=== PATIENT | male | born 1970 | race Caucasian/White ===

== ENCOUNTER → 2021-10-03 | Outpatient (CLI) | payer BC ==
--- NOTE | 2021-10-03 20:51 | CT ---
EXAMINATION TYPE: CT abdomen pelvis w con DATE OF EXAM: 10/03/2021 COMPARISON: None available HISTORY: umbilical pain/burning , h/o hernia repair CT DLP: 845.7 mGycm Automated exposure control for dose reduction was used. TECHNIQUE: Helical acquisition of images was performed from the lung bases through the pelvis. CONTRAST: Performed with Oral Contrast and with IV Contrast, patient injected with 100 mL of Isovue 300. FINDINGS: LUNG BASES: Scattered bilateral pleural-based pulmonary nodules measuring up to 6 mm. Recommend [facility] elective CT chest assessment. LIVER/GB: No significant abnormality is appreciated. PANCREAS: No significant abnormality is seen. SPLEEN: No significant abnormality is seen. ADRENALS: No significant abnormality is seen. KIDNEYS: No significant abnormality is seen. FREE AIR: No free air is visualized. RETROPERITONEAL ADENOPATHY: No pathologically enlarged lymph nodes. REPRODUCTIVE ORGANS: No significant abnormality is seen URINARY BLADDER: No significant abnormality is seen. PELVIC ADENOPATHY: 16 mm soft tissue nodule is seen in the right inguinal region deep to the anterio r abdominal wall muscle and anteromedial to the external iliac vessels, incompletely characterized by this CT scan and could represent a lymph node or sequela of previous inguinal hernia repair. Left in guinal densities are also noted likely related to previous inguinal hernia repair, please correlate w ith the patient's surgical history/operative report. Otherwise no pathologically enlarged pelvic lymp h nodes. OSSEOUS STRUCTURES: Degenerative changes of the lower thoracic and upper lumbar spine. BOWEL: Mild wall thickening of the greater curvature of the stomach, possibly due to incomplete dist ention. Recommend correlation with gastroscopy results. Unremarkable remainder of the stomach, duoden um and small bowel. No gross colonic abnormality. Subtle fat stranding in the mesentery with prominen t subcentimeter lymph nodes, nonspecific. Element of mesenteritis cannot be excluded. OTHER: Scattered arterial atherosclerotic calcifications. Scarring is seen along the umbilicus, proba felicia related to previous surgery. IMPRESSION: 1. The described changes in the inguinal regions and along the umbilicus could be related to previous hernia repair, please correlate with the patient's surgical history/operative report. Possible right inguinal lymph node versus postsurgical changes. 2. Mild wall thickening of the greater curvature of the stomach, nonspecific. Underlying small lesion cannot be excluded. Further gastroscopy can be considered if clinically required. 3. Bilateral basal pulmonary nodules as described above, for further dedicated CT scan of the chest. Other incidental findings as described above.
== END | disposition home or self-care (01) ==
LOC: RADCTMAIN 14:34
PROVIDERS: ATTEND Surgery Plastic and Reconstructive Surgery
DX: R91.8 Other nonspecific abnormal finding of lung field (principal); K31.89 Other diseases of stomach and duodenum
CPT/HCPCS: 74177; Q9967

== ENCOUNTER 2021-10-24 09:05 | Day surgery (SDC) | payer BC ==
[2021-10-22 14:48] VITALS: BMI 25.7
--- NOTE | 2021-10-24 07:37 | P.GSHP ---
History of Present Illness H&P Date: 10/24/21 CHIEF COMPLAINT: GERD and colon screen HISTORY OF PRESENT ILLNESS: The patient is a 50-year-old male who presents with gastroesophageal reflux disease and need for colon screen. Upper and lower endoscopy were offered for further evaluation and management. PAST MEDICAL HISTORY: Please see list. PAST SURGICAL HISTORY: Please see list. MEDICATIONS: Please see list. ALLERGIES: Please see list. SOCIAL HISTORY: No illicit drug use FAMILY HISTORY: No reports of Crohn disease or ulcerative colitis. REVIEW OF ORGAN SYSTEMS: CONSTITUTIONAL: No reports of fevers or chills. GI: Denies any blood in stools or constipation. PHYSICAL EXAM: VITAL SIGNS: Stable GENERAL: Well-developed pleasant in no acute distress. HEENT: No scleral icterus. Extraocular movements grossly intact. Moist buccal mucosa. NECK: Supple without lymphadenopathy. CHEST: Unlabored respirations. Equal bilateral excursions. CARDIOVASCULAR: Regular rate and rhythm. Distal 2+ pulses. ABDOMEN: Soft, nondistended. MUSCULOSKELETAL: No clubbing, cyanosis, or edema. ASSESSMENT: 1. Gastroesophageal reflux disease 2. Colon screen. PLAN: 1. Recommend proceeding with an upper and lower endoscopy Past Medical History Past Medical History: GERD/Reflux, Hypertension History of Any Multi-Drug Resistant Organisms: None Reported Past Surgical History: Appendectomy, Hernia Repair, Tonsillectomy Additional Past Surgical History / Comment(s): Hernia repair X3, tendon repair right hand. Past Anesthesia/Blood Transfusion Reactions: No Reported Reaction Past Psychological History: Depression Smoking Status: Never smoker Past Alcohol Use History: Rare Past Drug Use History: None Reported - Past Family History Mother Family Medical History: No Reported History Medications and Allergies Home Medications Medication Instructions Recorded Confirmed Type Lisinopril [Zestril] 10 mg PO QAM 10/22/21 10/22/21 History Omeprazole 20 mg PO DAILY 10/22/21 10/22/21 History buPROPion HCL [Wellbutrin SR] 150 mg PO DAILY 10/22/21 10/22/21 History Allergies Allergy/AdvReac Type Severity Reaction Status Date / Time Penicillins Allergy Itching Verified 10/22/21 14:36
[~2021-10-24 09:05] MED LIST: LACTATED RINGERS 1,000 ML IV SCH; LIDOCAINE 1% (10MG/ML) FOR IV START INTRADERMA PRN; MIDAZOLAM 2 MG/2 ML VIAL IV PRN
[2021-10-24 09:39] VITALS: TEMP 98
[2021-10-24] MEDS ORDERED: PROPOFOL 10 MG/ML 20 ML VIAL IV ONE (11:28)
[2021-10-24] MEDS ORDERED: LIDOCAINE 1% INJ 10MG/ML (20 ML MDV) ONE (11:28)
[2021-10-24] MEDS ORDERED: SODIUM CHLORIDE 0.9% 500 ML 500 ML IV ONE (11:51)
--- NOTE | 2021-10-24 12:03 | P.PCN ---
Date of Procedure: 10/24/21 Description of Procedure: PREOPERATIVE DIAGNOSIS: Gastroesophageal reflux disease. Abnormal computed tomography scan for gastric anomaly POSTOPERATIVE DIAGNOSIS: Gastroesophageal reflux disease. Gastric polyps Gastritis. Diaphragmatic hiatal hernia OPERATION: Esophagogastroduodenoscopy with biopsies along antrum. SURGEON: Korina Mart MD ANESTHESIA: MAC. INDICATIONS: The patient is a 50-year-old male who presents with reflux disease. Benefits and risks of the procedure were described. Informed consent was obtained. DESCRIPTION: The patient was brought into the endoscopy suite and laid in the left lateral decubitus position. An Olympus gastroscope was passed along the posterior oropharynx down to the distal esophagus where the squamocolumnar junction was encountered at 36 cm from the incisors. The stomach was entered and no bile reflux was found. Additional findings are listed below. Biopsies with cold forceps were obtained of the antrum. The first through third portion of the duodenum was examined and unremarkable. Retroflexion of the scope confirmed Hill grade 4 lower esophageal valve. The squamocolumnar junction demonstrated LA grade B erosive esophagitis. The stomach was desufflated. The patient tolerated the procedure well. FINDINGS: Squamocolumnar junction 36 cm from the incisors. Diaphragmatic hiatus at 40 cm. Hiatal hernia, 4 cm Hill grade 4 lower esophageal valve. LA grade B erosive esophagitis. No active duodenitis. Gastric polyps Chronic gastritis with recent bleed RECOMMENDATIONS: May benefit from antireflux operation Upper endoscopy as needed.
--- NOTE | 2021-10-24 12:06 | P.PCN ---
Date of Procedure: 10/24/21 Description of Procedure: PREOPERATIVE DIAGNOSIS: Colonoscopy screening POSTOPERATIVE DIAGNOSIS: Colonoscopy screening Tubular adenoma ascending colon Internal hemorrhoids, grade 2 OPERATION: Colonoscopy to the ileocecal valve and appendiceal orifice, cecum Colonoscopy with hot snare polypectomy SURGEON: Korina Mart MD. ANESTHESIA: MAC. INDICATIONS: The patient is an 50-year-old male who presents for colonoscopy screening. This is his first. Benefits and risks were described and informed consent was obtained. DESCRIPTION OF PROCEDURE: The patient had undergone Sutab prep. The patient had been brought into the operating room and laid in the left lateral decubitus position. After adequate intravenous sedation, the rectum was examined with 2% lidocaine jelly. The prostate was unremarkable. External hemorrhoids were encountered. The rectal tone was within normal limits. No lesions were palpated in the rectal vault. An Olympus colonoscope was advanced until the cecum, ileocecal valve and appendiceal orifice were clearly viewed. The prep was good. No sigmoid diverticulosis was encountered. Colonic polyps were found and removed. No evidence of focal colitis was found. Retroflexion of the scope demonstrated grade 2 internal hemorrhoids without active bleeding or inflammation. The colon was desufflated. The patient had tolerated the procedure well. Withdrawal time was over 6 minutes. FINDINGS: Aronchick preparation quality scale 2 (1-5) Internal hemorrhoids, grade 2 External hemorrhoids, grade 3 No arteriovenous malformations. No sigmoid diverticulosis Removal of 1 polyp: - Snare polypectomy ascending colon, 5 mm tubulovillous adenoma polyp. No focal colitis. RECOMMENDATIONS: Repeat colonoscopy in 3 years, 2024 Plan - Discharge Summary Discharge Rx Participant: No New Discharge Prescriptions: Continue Lisinopril [Zestril] 10 mg PO QAM buPROPion HCL [Wellbutrin SR] 150 mg PO DAILY Omeprazole 20 mg PO DAILY Discharge Medication List Lisinopril [Zestril] 10 mg PO QAM 10/22/21 [History] Omeprazole 20 mg PO DAILY 10/22/21 [History] buPROPion HCL [Wellbutrin SR] 150 mg PO DAILY 10/22/21 [History] Follow up Appointment(s)/Referral(s): Korina Mart MD [STAFF PHYSICIAN] - 11/26/21 Patient Instructions/Handouts: Hiatal Hernia (DC), Colorectal Polyps (GEN) Activity/Diet/Wound Care/Special Instructions: Repeat colonoscopy in 3 years, 2024 Discharge Disposition: HOME SELF-CARE
[2021-10-24 12:08] VITALS: RESP 20
[2021-10-24 12:23] VITALS: BP 132/66; PULSE 69
== END 2021-10-24 12:43 | disposition home or self-care (01) ==
LOC: ORWHC2ENDO 09:05
PROVIDERS: ATTEND Surgery Plastic and Reconstructive Surgery
DX: K21.00 Gastro-esophageal reflux disease with esophagitis, without bleeding (principal); K29.50 Unspecified chronic gastritis without bleeding; K31.7 Polyp of stomach and duodenum; K44.9 Diaphragmatic hernia without obstruction or gangrene; Z12.11 Encounter for screening for malignant neoplasm of colon; D12.2 Benign neoplasm of ascending colon; K64.1 Second degree hemorrhoids; K64.4 Residual hemorrhoidal skin tags; I10 Essential (primary) hypertension; F32.A Depression, unspecified; E78.5 Hyperlipidemia, unspecified; Z90.49 Acquired absence of other specified parts of digestive tract; Z98.890 Other specified postprocedural states; Z79.899 Other long term (current) drug therapy; Z88.0 Allergy status to penicillin; Z90.89 Acquired absence of other organs
CPT/HCPCS: 88305; 45385; 43239; J2001; J2704